=== PATIENT | female | born 1950 | race Two or more races ===

== ENCOUNTER 2019-06-10 13:11 | Emergency (ER) | payer SELFPAY ==
[~2019-06-10] VITALS: Ht 162.6 cm; Wt 61.2 kg
[2019-06-10 16:24] VITALS: BP 166/74
== END 2019-06-10 16:48 | disposition home or self-care (01) ==
LOC: ER 13:11
DX: E03.9 Hypothyroidism, unspecified (principal); I10 Essential (primary) hypertension; Z76.0 Encounter for issue of repeat prescription